=== PATIENT | female | born 1960 | race Caucasian/White ===

== ENCOUNTER 2018-11-12 10:29 | Day surgery (SDC) | payer BC, MEDICARE ==
[~2018-11-12 10:29] MED LIST: CEFAZOLIN 2 Gram 2 GM/50 ML BAG IVPB ONE; CELECOXIB 100 MG CAPSULE PO ONE; FAMOTIDINE 20MG TABLET PO ONE; MECLIZINE 25 MG TABLET PO ONE; METOCLOPRAMIDE 10 MG TABLET PO ONE; VANCOMYCIN 1GM/200ML PREMIX 1 GM/200 ML PIGGYBACK IVPB ONE
[2018-11-12] MEDS ORDERED: ONDANSETRON HCL IV 4 MG/2 ML VIAL IVP ONE (10:30)
[2018-11-12] MEDS ORDERED: MIDAZOLAM HCL 2MG/2ML VIAL IV ONE (10:30)
[2018-11-12] MEDS ORDERED: LIDOCAINE 2% MDV (20MG/ML) 20ML VIAL IV ONE (10:30)
[2018-11-12] MEDS ORDERED: PROPOFOL 10 MG/ML VIAL IV ONE (10:30)
[2018-11-12] MEDS ORDERED: MORPHINE SULFATE 5 MG/ML VIAL IJ ONE (10:30)
[2018-11-12] MEDS ORDERED: SEVOFLURANE 250 ML INH ONE (10:30)
[2018-11-12 11:10] LABS: URINE APPEARANCE CLEAR; URINE BILIRUBIN NEGATIVE (NEGATIVE); URINE BLOOD TRACE-I (NEGATIVE); URINE COLOR YELLOW; URINE GLUCOSE (UA) NEGATIVE (NEGATIVE); URINE KETONE NEGATIVE (NEGATIVE); URINE LEUKOCYTE ESTERASE NEGATIVE (NEGATIVE); URINE NITRITE NEGATIVE (NEGATIVE); URINE PROTEIN NEGATIVE (NEGATIVE); URINE UROBILINOGEN 0.2 E.U./dL (0.20 - 1.00)
[2018-11-12 11:36] LABS: URINE EPITHELIAL CELLS 0 - 2 (FEW); URINE RBC 0 - 2 (NONE SEEN); URINE WBC 0 - 2 (0-2/hpf)
[2018-11-12] MEDS ORDERED: RINGERS SOLUTION,LACTATED 1,000 ML IV ONE ×3 (11:52→12:59)
[2018-11-12] MEDS ORDERED: BUPIVACAINE 0.5% W/EPI MPF 30 ML VIAL SQ ONE (12:23)
[2018-11-12 12:29] LABS: ABO GROUP A; ANTIBODY SCREEN NEGATIVE (NEGATIVE); RH TYPE POSITIVE
[2018-11-12] MEDS ORDERED: ACETAMINOPHEN 325 MG TAB PO PRN (13:12)
[2018-11-12] MEDS ORDERED: BISACODYL 10 MG SUPP RC PRN (13:12)
[2018-11-12] MEDS ORDERED: AL HYDROX/MAG HYDROX 30ML UD PO PRN (13:12)
[2018-11-12] MEDS ORDERED: ACETAMINOPHEN W/ CODEINE 300MG/60MG TABLET PO PRN ×2 (13:12)
[2018-11-12] MEDS ORDERED: KETOROLAC 30 MG/ML VIAL IVP PRN (13:12)
[2018-11-12] MEDS ORDERED: OXYCODONE HCL 5 MG TABLET PO PRN (13:12)
[2018-11-12] MEDS ORDERED: MAGNESIUM HYDROXIDE 30 ML UDC PO PRN (13:12)
[2018-11-12] MEDS ORDERED: ONDANSETRON 4 MG ODT TABLET SL PRN (13:12)
[2018-11-12] MEDS ORDERED: NALOXONE 0.4 MG/1 ML VIAL IVP PRN (13:12)
[2018-11-12] MEDS ORDERED: DIPHENHYDRAMINE HCL 25 MG CAPSULE PO PRN (13:12)
[2018-11-12] MEDS ORDERED: TRAMADOL HCL 50 MG TABLET PO PRN (13:12)
[2018-11-12] MEDS: KETOROLAC 30 MG/ML VIAL IVP PRN ×2 (13:35→16:14)
[2018-11-12] MEDS ORDERED: FENTANYL PF 100MCG/2ML VIAL IVP PRN (13:38)
[2018-11-12] MEDS ORDERED: KETOROLAC 30 MG/ML VIAL IVP ONE (13:41)
[2018-11-12] MEDS: HYDROCODONE/APAP 10/325 TABLET PO PRN ×3 (15:23→20:46)
[2018-11-12] MEDS ORDERED: ROPIVACAINE HCL (NAROPIN) /PF 5MG/ML 20ML VIAL IV ONE (15:32)
[2018-11-12] MEDS ORDERED: DEXAMETHASONE 4 MG/ML 1ML VIAL IVP ONE (15:32)
[2018-11-12] MEDS ORDERED: TRANEXAMIC ACID 1,000 MG/10 ML ML IV ONE (15:35)
--- NOTE | 2018-11-12 17:29 | Rehab Evaluation ---
Patient Information - Patient Information Diagnosis: Pain in knee/patellar revision Ordered Treatment: PT Evaluate and Treat Status: Initial Evaluation Surgery: Yes (L knee patella revision) Date of Surgery: 11/12/18 Past Medical/Surgical Hx: PAST MEDICAL/SURGICAL HISTORY Past Surgical History BILAT KNEE REPLACEMENTS BILAT KNEE SCOPES BACK INJS PMH - Respiratory Hx Respiratory Disorders Yes Hx Bronchitis Yes: NOTHING RECENT Hx Sleep Apnea Yes Hx of CPAP No PMH - Cardiovascular Hx Cardiovascular Disorders Yes Hx Edema Yes: LE'S Hx Hypertension Yes: CONTROLLED WITH MEDS Hx Irregular Heartbeat Yes: HX TACHYCARDIA CONTROLLED WITH METOPROLOL Exercise Tolerance Poor PMH - Neuro Hx Neurological Disorders Yes Hx Headaches Yes: EVERYDAY SINUS AND TENSION PMH - GI Hx Gastrointestinal Disorders Yes Hx Gastroesophageal Reflux Yes: CONTROLLED WITH MEDS Hx Irritable Bowel Yes PMH - Hx Genitourinary Disorders Yes Hx Age of Menopause 42 Hx Bladder Problem Yes: OVERACTIVE, MEDS MINIMAL HELP PMH - Endocrine Hx Endocrine Disorders No PMH - Musculoskeletal Hx Musculoskeletal Disorders Yes Hx Arthritis Yes: "EVERYWHERE" Hx Fibromyalgia Yes PMH - Psych Hx Psychiatric Problems Yes Hx Anxiety Yes Hx Depression Yes Major Depressive Episode Yes PMH - Hematology/Oncology Hx Hematology/Oncology Yes Disorders Hx Blood Transfusion Reaction No Comment: CHRONIC FATIGUE SYNDROME Premorbid Status: Detail (The patient had some difficulty with mobilty prior to surgery.) Social History: Detail (Patient lives spouse in a two story house with 4 steps at the enterance and one handrail. The bathroom has a walk in shower, elevated toilet. No grab bars are presetn in the bathroom. The patient has a front wheeled walker, std. cane and shower bench.) Precautions: [place], Fall, Other (WBAT on the L LE.) - Time With Patient Total Time Spent With Patient (Min): 30 Treatment Procedures: Detail (Initial Evaluation low complexity , gait training.) Subjective Information - Subjective Information Per Patient (The patient had complaints of L knee pain which she rated as 5 at the highest.) Objective Data - Mental Status Patient Orientation: Oriented x3 - Visual Perception Appears within normal limits for therapeutic activities - ROM Not within normal limits (The patient had limitations in L knee AROM s/p surgery.) - Strength/Tone Not within normal limits (The patient's LE strength was not tested s/p however the patient presents with bilateral LE weakness. Patient's LE is functional.) - Bed Mobility Independent (Independent supine to and from sit transfer.) - Transfers Independent (Independent sit to and from stand transfer. Independent toilet transfer.) - Balance Balance Sitting: Good Balance Standing: Good - Sensation Intact - Gait Detail (The patient ambulated with front wheeled walker WBAT on the L LE with CG/supervision for safety a distance of 30 feet x 1 and 20 feet x 1 ( The distance was limited secondary to pain ). The patient ambulated on 3 stairs with use of 2 railings and CG of 2 for safety. Patient used a modified technique(leading with L LE when going up stairs) due to R LE weakness and hip limitations. PT gaurded L knee with ascending stairs. The patient's was present for stair climbing.) Therapy Assessment - Therapy Assessment Detail (Patient was independent with ambulation limited distances due to pain co mplaints and required CG to ambulate on stairs. Patient and her were aware of CG requirements. Patient was tearful prior to stair climbing stated she would be unable to climb stairs. Patient did ambulate on stairs after PT stated patient needed to demonstrate her safety on stairs prior to discharge. Patient has passed ambulation skills with gaurding restrictions on stairs. Patient has decided to stay the night due to pain management issues. PT will instruct patient in HEP and check on patient for another trial on stairs.) Problem List - Problem List Physical Therapy Problem List: Detail (1) Decreased bilateral LE strength 2) Impaired ambulation on levels and stairs s/p surgery and bilateral LE weakness and pain) Goals - Goals Physical Therapy Goals: The patient will be independent with HEP of LE strengthening exercises. The patient will ambulate household distances of 50 - 60 feet independently WBAT on the L LE. Prognosis - Prognosis Good Plan - Plan Physical Therapy Plan: PT 1-2 visits for gait training and instruction in HEP.
[2018-11-12] MEDS ORDERED: CEFTRIAXONE 1GM/50ML BAG 1 GM/50 ML BAG IVPB SCH (18:00)
[2018-11-12] MEDS ORDERED: CLONAZEPAM 1MG TABLET PO PRN (20:13)
[2018-11-12] MEDS ORDERED: RANITIDINE HCL 150 MG TABLET PO SCH (20:30)
[2018-11-12] MEDS ORDERED: PANTOPRAZOLE SODIUM 40 MG TABLET PO SCH (20:30)
[2018-11-12] MEDS: OXYBUTYNIN CHLORIDE 5MG TABLET PO SCH (21:31)
[2018-11-12] MEDS: DOCUSATE SODIUM 100 MG CAPSULE PO SCH (21:31)
[2018-11-12] MEDS ORDERED: METOPROLOL TART 50 MG TABLET PO SCH (22:00)
[2018-11-12] MEDS ORDERED: CLONAZEPAM 1MG TABLET PO SCH (22:00)
[2018-11-12] MEDS ORDERED: PAROXETINE HCL 10 MG TABLET PO SCH (22:00)
[2018-11-13] MEDS: HYDROCODONE/APAP 10/325 TABLET PO PRN ×3 (00:50→10:01)
--- NOTE | 2018-11-13 08:10 | Rehab Evaluation ---
Patient Information - Patient Information Diagnosis: Pain in knee/patellar revision Ordered Treatment: OT Evaluate and Treat Status: Initial Evaluation Surgery: Yes (L knee patella revision) Date of Surgery: 11/12/18 Past Medical/Surgical Hx: PAST MEDICAL/SURGICAL HISTORY Past Surgical History BILAT KNEE REPLACEMENTS BILAT KNEE SCOPES BACK INJS PMH - Respiratory Hx Respiratory Disorders Yes Hx Bronchitis Yes: NOTHING RECENT Hx Sleep Apnea Yes Hx of CPAP No PMH - Cardiovascular Hx Cardiovascular Disorders Yes Hx Edema Yes: LE'S Hx Hypertension Yes: CONTROLLED WITH MEDS Hx Irregular Heartbeat Yes: HX TACHYCARDIA CONTROLLED WITH METOPROLOL Exercise Tolerance Poor PMH - Neuro Hx Neurological Disorders Yes Hx Headaches Yes: EVERYDAY SINUS AND TENSION PMH - GI Hx Gastrointestinal Disorders Yes Hx Gastroesophageal Reflux Yes: CONTROLLED WITH MEDS Hx Irritable Bowel Yes PMH - Hx Genitourinary Disorders Yes Hx Age of Menopause 42 Hx Bladder Problem Yes: OVERACTIVE, MEDS MINIMAL HELP PMH - Endocrine Hx Endocrine Disorders No PMH - Musculoskeletal Hx Musculoskeletal Disorders Yes Hx Arthritis Yes: "EVERYWHERE" Hx Fibromyalgia Yes PMH - Psych Hx Psychiatric Problems Yes Hx Anxiety Yes Hx Depression Yes Major Depressive Episode Yes PMH - Hematology/Oncology Hx Hematology/Oncology Yes Disorders Hx Blood Transfusion Reaction No Comment: CHRONIC FATIGUE SYNDROME Premorbid Status: Detail (The patient had some difficulty with mobilty prior to surgery. Spouse is responsible for all home mgmt, meal prep and laundry tasks.) Social History: Detail (Patient lives spouse in a two story house with 4 steps at the entrance and one handrail. The bathroom has a walk in shower, elevated toilet. No grab bars are present in the bathroom. The patient has a front wheeled walker, std. cane and shower bench.) Precautions: [place], Fall, Other (WBAT on the L LE.) - Time With Patient Total Time Spent With Patient (Min): 35 Treatment Procedures: Detail (OT eval low complexity) Subjective Information - Subjective Information Per Patient, Other (spouse) Objective Data - Pain Pain Present: Yes (10/02) - Mental Status Patient Orientation: Oriented x3 - Visual Perception Appears within normal limits for therapeutic activities - ROM Within normal limits (Wilner UE AROM WNL) - Strength/Tone Within normal limits (Wilner UE strength WNL) - Coordination Appears within normal limits for therapeutic activities - Bed Mobility Independent (Ind with supine to sit) - Transfers Independent (Ind with sit to stand from EOB and commode heights) - Balance Balance Sitting: Good Balance Standing: Fair - Sensation Intact - Gait Detail (Pt ambulating in room with 2 wheeled walker and CG assist.) - ADL's/IADL's Detail (Pt educated and able to demonstrate learning of modified LE dressing techniques including doffing slipper socks and briefs and donning underwear, shorts, socks and shoes. Reviewed kitchen and shower safety and modifications, pt able to verbalize understanding.) Therapy Assessment - Therapy Assessment Detail (Pt is Ind with modified LE dressing techniques.) Problem List - Problem List Physical Therapy Problem List: Detail (1) Decreased bilateral LE strength 2) Impaired ambulation on levels and stairs s/p surgery and bilateral LE weakness and pain) Occupational Therapy Problem List: Detail (No current IP OT problems identified.) Goals - Goals Physical Therapy Goals: The patient will be independent with HEP of LE strengthening exercises. The patient will ambulate household distances of 50 - 60 feet independently WBAT on the L LE. Occupational Therapy Goals: No current IP OT goals identified. Prognosis - Prognosis Good Plan - Plan Physical Therapy Plan: PT 1-2 visits for gait training and instruction in HEP. Occupational Therapy Plan: No further IP OT recommended. Thank you for this referral.
[2018-11-13] MEDS: DOCUSATE SODIUM 100 MG CAPSULE PO SCH (09:56)
[2018-11-13] MEDS: OXYBUTYNIN CHLORIDE 5MG TABLET PO SCH (09:56)
[2018-11-13] MEDS ORDERED: PAROXETINE HCL 10 MG TABLET PO SCH (10:00)
--- NOTE | 2018-11-13 12:03 | Physical Therapy Tx Note ---
Physical Therapy Tx Note - Treatment Note Total Time Spent With Patient: 15 Physical Therapy Tx Note: Detail (Patient declined ambulation this am but states she is ambulating without difficulty. The patient's L knee pain is level 2. Technique of stair climbing was reviewed. The patient completed HEP independently including quad sets, hamstring sets, SLR, ankle pumps , gluteal sets and heelslides supine. The patient is discharged from inpatient PT and is to continue with HEP.) Physical Therapy Problem List: Detail (1) Decreased bilateral LE strength 2) Impaired ambulation on levels and stairs s/p surgery and bilateral LE weakness and pain) Physical Therapy Goals: The patient will be independent with HEP of LE strengthening exercises (Goal Met). The patient will ambulate household distances of 50 - 60 feet independently WBAT on the L LE. (Goal Met) Physical Therapy Plan: The patient has met all inpatient goals and is discharged from inpatient PT.
--- NOTE | 2018-11-13 14:51 | Operative Note ---
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 POSTOPERATIVE DIAGNOSIS: Failed left total knee patella. OPERATION: Revision left total knee patellar component and tibial liner. STAFF SURGEON: Ino Martinez MD ANESTHESIA: Spinal. PREPARATION: Chloraprep. INDIVIDUAL CONSIDERATIONS: None. PROCEDURE: The patient was taken to the operating room, placed supine on the operating room table. She had a successful induction with spinal anesthetic. Her left lower extremity was prepped and draped in the usual fashion. The patient had a midline approach to the knee. Limb was elevated and tourniquet was inflated to 250 mmHg. Sharp dissection carried down through skin and subcutaneous tissue. Previous scar was used. Small veins were coagulated with the Bovie. A medial arthrotomy was performed. Patella was everted, knee was flexed. There was obviously severe wear on the patella. It measured 23 mm before and now it measures maybe 18 to 16 mm because of the wear. The femoral component and tibial component were well placed. I went ahead and debrided some of the anterior soft tissue and fat pad and was able to dislodge the tibial component. It showed absolutely no signs of wear after irrigation. I replaced it with a size 5 Journey tibial liner this time with highly crosslinked poly. I then went ahead and isolated out the patella. I was able to just do a wafer cut on it compensating for bone loss. I probably removed about 3-4 mm of bone because I think at least 4 mm had been previously worn away. I was able to fit a 32 patella, and the 3 taxonomist holes were drilled. After thorough irrigation and drying the bone, I cemented a size 32 Journey patella. After the cement had set, there was normal patellofemoral tracking and no lateral release was required. After thorough irrigtion, I went ahead and infiltrated the periosteum and skin and subcu with 30 mL of 0.5% Marcaine with epinephrine. I then went ahead and closed the capsule with a running #2 quill. Subcu was closed with running 0 quill. Skin was closed with ct and a sterile bulky compressive TALIA dressing was applied. The patient tolerated procedure well. Needle and sponge counts were correct. Estimated blood loss was minimal. The patient was taken back to recovery in good condition. There were no complications. [facility]
== END 2018-11-13 11:45 | disposition home health service (06) ==
LOC: MEDSURG 10:29 → SUR 10:29 → INTOOBSV 10:29 → UNDOADMOB 10:29 → MEDSURG 10:29 → EDSTATUS 13:00 → MEDSURG 13:17 → SUR 11-13 11:45
PROVIDERS: ATTEND Orthopaedic Surgery
DX: T84.093A Other mechanical complication of internal left knee prosthesis, initial encounter (principal); I10 Essential (primary) hypertension; K21.9 Gastro-esophageal reflux disease without esophagitis; M79.7 Fibromyalgia; N32.81 Overactive bladder; G47.33 Obstructive sleep apnea (adult) (pediatric)
CPT/HCPCS: 27438; 01392; 64447; 81001; 86900; 86901; 86850; 94760; J1885; J2405; J3490 ×5; J3010; J0690; J2795; J0696; J3370; 76942; J7120

== ENCOUNTER 2018-12-24 06:51 | Day surgery (SDC) | payer MEDICARE ==
[2018-12-24] MEDS ORDERED: KETAMINE HCL 100MG/1ML VIAL INJ ONE (06:52)
[2018-12-24] MEDS ORDERED: PROPOFOL 10 MG/ML VIAL IV ONE (06:52)
[2018-12-24] MEDS ORDERED: ROPIVACAINE HCL (NAROPIN) /PF 5MG/ML 20ML VIAL IV ONE (06:52)
[2018-12-24] MEDS ORDERED: DEXAMETHASONE 4 MG/ML 1ML VIAL IVP ONE (06:52)
[2018-12-24] MEDS ORDERED: LIDOCAINE 2% MDV (20MG/ML) 20ML VIAL IV ONE (06:52)
[2018-12-24] MEDS ORDERED: ONDANSETRON HCL IV 4 MG/2 ML VIAL IVP ONE (06:52)
[2018-12-24] MEDS ORDERED: MAGNESIUM SULFATE 8 MEQ(1GM)/2ML VIAL IV ONE (06:52)
[2018-12-24] MEDS ORDERED: RINGERS SOLUTION,LACTATED 1,000 ML IV ONE ×2 (07:50→10:44)
[2018-12-24 08:00] LABS: ABO GROUP A; RH TYPE POSITIVE
[2018-12-24 08:01] LABS: ANTIBODY SCREEN NEGATIVE (NEGATIVE)
[2018-12-24] MEDS ORDERED: TRANEXAMIC ACID 1,000 MG/10 ML ML IU ONE (09:38)
[2018-12-24] MEDS ORDERED: TRANEXAMIC ACID 1,000 MG/10 ML ML IV ONE (09:38)
[2018-12-24] MEDS ORDERED: BUPIVACAINE 0.5% W/EPI MPF 30 ML VIAL SQ ONE (09:38)
[2018-12-24] MEDS ORDERED: HYDROMORPHONE HCL 2 MG/ML VIAL IM PRN (10:49)
[2018-12-24] MEDS ORDERED: ACETAMINOPHEN 325 MG TAB PO PRN (10:49)
[2018-12-24] MEDS ORDERED: KETOROLAC 30 MG/ML VIAL IVP PRN (10:49)
[2018-12-24] MEDS ORDERED: MAGNESIUM HYDROXIDE 30 ML UDC PO PRN (10:49)
[2018-12-24] MEDS ORDERED: ZOLPIDEM TARTRATE 5 MG TABLET PO PRN (10:49)
[2018-12-24] MEDS ORDERED: ACETAMINOPHEN W/ CODEINE 300MG/60MG TABLET PO PRN ×2 (10:49)
[2018-12-24] MEDS ORDERED: BISACODYL 10 MG SUPP RC PRN (10:49)
[2018-12-24] MEDS ORDERED: NALOXONE 0.4 MG/1 ML VIAL IVP PRN (10:49)
[2018-12-24] MEDS ORDERED: TRAMADOL HCL 50 MG TABLET PO PRN (10:49)
[2018-12-24] MEDS ORDERED: AL HYDROX/MAG HYDROX 30ML UD PO PRN (10:49)
[2018-12-24] MEDS ORDERED: DIPHENHYDRAMINE HCL 25 MG CAPSULE PO PRN (10:49)
[2018-12-24] MEDS ORDERED: ONDANSETRON HCL IV 4 MG/2 ML VIAL IVP PRN (10:49)
[2018-12-24] MEDS ORDERED: HYDROMORPHONE HCL 2 MG/ML VIAL IVP ONE (11:21)
[2018-12-24] MEDS: POTASSIUM CHLORIDE/D5-0.9%NACL 20 MEQ/1,000 ML BAG IV SCH ×2 (12:34→23:14)
[2018-12-24] MEDS ORDERED: CLONAZEPAM 1 MG PO PRN (12:42)
--- NOTE | 2018-12-24 15:22 | Rehab Evaluation ---
Patient Information - Patient Information Diagnosis: R TKA revision Ordered Treatment: PT Evaluate and Treat Status: Initial Evaluation Surgery: Yes (R knee revision patellar component) Date of Surgery: 12/24/18 Past Medical/Surgical Hx: PAST MEDICAL/SURGICAL HISTORY Surgery to Affected Area? Yes Recent Surgery? Past Surgical History LEFT KNEE REVISION 11-12-18 BILAT KNEE REPLACEMENTS BILAT KNEE SCOPES BACK INJS PMH - Respiratory Hx Respiratory Disorders Yes Hx Bronchitis Yes: NOTHING RECENT Hx Sleep Apnea Yes Hx of CPAP No PMH - Cardiovascular Hx Cardiovascular Disorders Yes Hx Edema Yes: LE'S Hx Hypertension Yes: CONTROLLED WITH MEDS Hx Irregular Heartbeat Yes: HX TACHYCARDIA CONTROLLED WITH METOPROLOL Exercise Tolerance Fair PMH - Neuro Hx Neurological Disorders Yes Hx Headaches Yes: EVERYDAY SINUS AND TENSION PMH - GI Hx Gastrointestinal Disorders Yes Hx Gastroesophageal Reflux Yes: CONTROLLED WITH MEDS Hx Irritable Bowel Yes PMH - Hx Genitourinary Disorders Yes Hx Age of Menopause 42 Hx Bladder Problem Yes: OVERACTIVE, MEDS MINIMAL HELP PMH - Endocrine Hx Endocrine Disorders No PMH - Musculoskeletal Hx Musculoskeletal Disorders Yes Hx Arthritis Yes: "EVERYWHERE" Hx Fibromyalgia Yes PMH - Psych Hx Psychiatric Problems Yes Hx Anxiety Yes Hx Depression Yes PMH - Hematology/Oncology Hx Hematology/Oncology Yes Disorders Hx Blood Transfusion Reaction No Comment: CHRONIC FATIGUE SYNDROME Premorbid Status: Detail (The patient was ambulatory household distances prior to surgery.) Social History: Detail (The patient lives with spouse in a two story house with 4 steps at the enterance and one handrail. The patient will not be using second floor after surgery. The patient has a walk in shower with a tub stool and an elevated toilet. No grab bars are present in bathroom. The patient has a front wheeled walker and standard cane.) Precautions: [place], Fall, Other (WBAT on the R LE.) - Time With Patient Total Time Spent With Patient (Min): 30 Treatment Procedures: Detail (Initial Evaluation low complexity.) Subjective Information - Subjective Information Per Patient (The patient had no complaints of R knee pain.) Objective Data - Mental Status Patient Orientation: Oriented x3 - Visual Perception Appears within normal limits for therapeutic activities - ROM Not within normal limits (The patient's R knee AROM was limited s/p surgery. All other LE AROM was WFL.) - Strength/Tone Not within normal limits (The patient's strength was not formally tested but is functional.) - Bed Mobility Independent (The patient was independent with supine to and from sit transfer.) - Transfers Independent (The patient was independent with sit to and from stand transfer.) - Balance Balance Sitting: Good Balance Standing: Good - Sensation Intact - Gait Detail (The patient ambulated with front wheeled walker WBAT on the R LE with supervision for safety only a distance of 100 feet x 1.) Therapy Assessment - Therapy Assessment Detail (The patient was independent with bed mobility, transfers and supervision only for safety with ambulation. The patient should sucessfully complete inpatient PT goals in one to two sessions.) Problem List - Problem List Physical Therapy Problem List: Detail (1) Decreased R knee AROM 2) Decreased R LE strength) Goals - Goals Physical Therapy Goals: 1) The patient will ambulate independently with assistive device household distances WBAT on the R LE. 2) The patient will ambulate on stairs using proper technique with supervision for safety. 3) The patient will be independent with TKA HEP Prognosis - Prognosis Good Plan - Plan Physical Therapy Plan: PT 1-2 sessions for gait training on levels and stairs and TKA HEP.
[2018-12-24] MEDS: HYDROCODONE/APAP 10/325 TABLET PO PRN ×2 (15:57→21:18)
[2018-12-24] MEDS ORDERED: PANTOPRAZOLE SODIUM 40 MG TABLET PO SCH (16:30)
[2018-12-24] MEDS ORDERED: RANITIDINE HCL 150 MG TABLET PO SCH (16:30)
[2018-12-24] MEDS: CEFAZOLIN 2 Gram 2 GM/50 ML BAG IVPB SCH (16:46)
[2018-12-24] MEDS: DOCUSATE SODIUM 100 MG CAPSULE PO SCH (21:11)
[2018-12-24] MEDS: OXYBUTYNIN 5 MG PO SCH (21:16)
[2018-12-24] MEDS ORDERED: METOPROLOL SUCCINATE 50MG PO SCH (22:00)
[2018-12-24] MEDS ORDERED: PAROXETINE 20 MG PO SCH (22:00)
[2018-12-24] MEDS ORDERED: MEDROXYPROGESTERONE 5 MG PO SCH (22:00)
[2018-12-24] MEDS ORDERED: CLONAZEPAM 1 MG PO SCH (22:00)
[2018-12-25] MEDS: CEFAZOLIN 2 Gram 2 GM/50 ML BAG IVPB SCH ×2 (01:03→10:12)
[2018-12-25] MEDS: POTASSIUM CHLORIDE/D5-0.9%NACL 20 MEQ/1,000 ML BAG IV SCH ×2 (04:50→13:47)
[2018-12-25] MEDS: HYDROCODONE/APAP 10/325 TABLET PO PRN ×3 (05:08→13:47)
[2018-12-25 06:44] LABS: HEMATOCRIT 33.9 % (35.0-47.0); HEMOGLOBIN 10.4 gm/dl (11.6-16.0)
[2018-12-25 07:04] LABS: BLOOD UREA NITROGEN 8 mg/dL (6-20); CREATININE 0.7 mg/dL (0.5-0.9); EST GLOMERULAR FILTRATION RATE > 60 mL/min; GLUCOSE,RANDOM 119 mg/dL (74-109)
--- NOTE | 2018-12-25 08:25 | Rehab Evaluation ---
Patient Information - Patient Information Diagnosis: R TKA revision Ordered Treatment: OT Evaluate and Treat Status: Initial Evaluation Surgery: Yes (R knee revision patellar component) Date of Surgery: 12/24/18 Past Medical/Surgical Hx: PAST MEDICAL/SURGICAL HISTORY Surgery to Affected Area? Yes Recent Surgery? Past Surgical History LEFT KNEE REVISION 11-12-18 BILAT KNEE REPLACEMENTS BILAT KNEE SCOPES BACK INJS PMH - Respiratory Hx Respiratory Disorders Yes Hx Bronchitis Yes: NOTHING RECENT Hx Sleep Apnea Yes Hx of CPAP No PMH - Cardiovascular Hx Cardiovascular Disorders Yes Hx Edema Yes: LE'S Hx Hypertension Yes: CONTROLLED WITH MEDS Hx Irregular Heartbeat Yes: HX TACHYCARDIA CONTROLLED WITH METOPROLOL Exercise Tolerance Fair PMH - Neuro Hx Neurological Disorders Yes Hx Headaches Yes: EVERYDAY SINUS AND TENSION PMH - GI Hx Gastrointestinal Disorders Yes Hx Gastroesophageal Reflux Yes: CONTROLLED WITH MEDS Hx Irritable Bowel Yes PMH - Hx Genitourinary Disorders Yes Hx Age of Menopause 42 Hx Bladder Problem Yes: OVERACTIVE, MEDS MINIMAL HELP PMH - Endocrine Hx Endocrine Disorders No PMH - Musculoskeletal Hx Musculoskeletal Disorders Yes Hx Arthritis Yes: "EVERYWHERE" Hx Fibromyalgia Yes PMH - Psych Hx Psychiatric Problems Yes Hx Anxiety Yes Hx Depression Yes PMH - Hematology/Oncology Hx Hematology/Oncology Yes Disorders Hx Blood Transfusion Reaction No Comment: CHRONIC FATIGUE SYNDROME Premorbid Status: Detail (The patient was ambulatory household distances prior to surgery. She and spouse share home mgmt, meal prep and laundry activities.) Social History: Detail (The patient lives with spouse in a two story house with 4 steps at the entrance and one handrail. The patient will not be using second floor after surgery. The patient has a walk in shower with a shower stool and an elevated toilet. No grab bars are present in bathroom. The patient has a front wheeled walker and standard cane.) Precautions: [place], Fall, Other (WBAT on the R LE.) - Time With Patient Total Time Spent With Patient (Min): 35 Treatment Procedures: Detail (OT eval low complexity) Subjective Information - Subjective Information Per Patient Objective Data - Pain Pain Present: No - Mental Status Patient Orientation: Oriented x3 - Visual Perception Appears within normal limits for therapeutic activities - ROM Within normal limits (Wilner UE AROM WNL) - Strength/Tone Within normal limits (Wilner UE strength WNL) - Coordination Appears within normal limits for therapeutic activities - Bed Mobility Independent (Ind with supine to sit) - Transfers Independent (Ind with sit to stand from elevated surfaces, pt requires assist from lower surfaces.) - Balance Balance Sitting: Good Balance Standing: Good - Sensation Intact - Gait Detail (Pt ambulating in room with 2 wheeled walker Indly.) - ADL's/IADL's Detail (Reviewed modified LE dressing techniques. Pt was able to demonstrate doffing briefs and slipper socks and donning jared sock (with assist), briefs, shorts, socks and slip on shoes. Reviewed kitchen and shower safety and modifications, pt verbalizes understanding.) Therapy Assessment - Therapy Assessment Detail (Pt is safe and Ind with modified LE dressing techniques.) Problem List - Problem List Physical Therapy Problem List: Detail (1) Decreased R knee AROM 2) Decreased R LE strength) Occupational Therapy Problem List: Detail (No current IP OT problems identified.) Goals - Goals Physical Therapy Goals: 1) The patient will ambulate independently with assistive device household distances WBAT on the R LE. 2) The patient will ambulate on stairs using proper technique with supervision for safety. 3) The patient will be independent with TKA HEP Occupational Therapy Goals: No current IP OT goals identified. Prognosis - Prognosis Good Plan - Plan Physical Therapy Plan: PT 1-2 sessions for gait training on levels and stairs and TKA HEP. Occupational Therapy Plan: No further IP OT recommended. Thank you for this referral.
[2018-12-25] MEDS ORDERED: PAROXETINE 20 MG PO SCH (10:00)
[2018-12-25] MEDS ORDERED: ESTRADIOL 1MG PO SCH (10:00)
[2018-12-25] MEDS ORDERED: FERROUS SULFATE 325 MG TAB PO SCH (10:00)
[2018-12-25] MEDS ORDERED: RIVAROXABAN 10 MG TABLET PO SCH (10:00)
[2018-12-25] MEDS: DOCUSATE SODIUM 100 MG CAPSULE PO SCH (10:09)
[2018-12-25] MEDS: OXYBUTYNIN 5 MG PO SCH (10:10)
--- NOTE | 2018-12-25 12:00 | Physical Therapy Tx Note ---
Physical Therapy Tx Note - Treatment Note Tolerated: Good Total Time Spent With Patient: 25 Physical Therapy Tx Note: Detail (Patient states right knee feeling a little better than earlier this morning. Patient transferred sit to and from stand CGA x1. Patient ambulated 13 feet with wheeled walker CGA x1. Patient transferred sit to and from stand mod assist x1, max assist x1. Patient ambulated 251 feet with wheeled walker CGA x1. Patient transferred sit to supine independently. Patient scooted up in bed independently. Patient performed the following exercises x10 reps each: ankle pumps, glut squeezes, quad sets, SLR, heel slides, and hamstring sets. Patient declined ambulation on stairs, but reports good understanding of stair climbing. Patient transferred supine to sit independently. Patient displayed difficultly with sit to stand transfer with toilet, but patient states toilet, bed, and chair at home are tall. Patient was left seated on edge of bed with call light within reach. Patient discharged from inpatient PT at this time, as almost all goals are met, and patient reports good understanding of stair climbing.) Physical Therapy Problem List: Detail (1) Decreased R knee AROM 2) Decreased R LE strength) Physical Therapy Goals: 1) The patient will ambulate independently with assistive device household distances WBAT on the R LE. Met. 2) The patient will ambulate on stairs using proper technique with supervision for safety. Goal partially met. Patient declined stair climbing, but was able to verbalize correct technique. 3) The patient will be independent with TKA HEP. Met. Prognosis: Good Physical Therapy Plan: PT 1-2 sessions for gait training on levels and stairs and TKA HEP.
--- NOTE | 2018-12-31 14:42 | Operative Note ---
DATE OF SURGERY: 12/24/2018 PREOPERATIVE DIAGNOSIS: Failed right total knee arthroplasty, patella. POSTOPERATIVE DIAGNOSIS: Failed right total knee arthroplasty, patella. OPERATION: Revision of right total knee arthroplasty, patella, and replacement of the tibial liner. STAFF SURGEON: Ino Martinez MD ANESTHESIA: General. PREPARATION: Chloraprep. INDIVIDUAL CONSIDERATIONS: None. PROCEDURE: The patient was taken to the operating room, placed supine on the operating room table. She had a successful induction with general anesthetic. The right lower extremity was prepped and draped in the usual fashion. The limb was elevated and tourniquet was inflated to 250 mmHg. The patient had a midline approach to the knee. Previous incision was used. Sharp dissection carried down through skin and subcutaneous tissue. Small veins were coagulated with a Bovie. A medial arthrotomy was performed. The patella was partially everted. There was quite a bit of bone loss on the patella with complete cartilage loss but there was about I would say 15 mm remaining. I was able to make a trueing cut, just flatten it off, and I removed maybe 3 mm of bone, which left sufficient patella remaining for an implant. I then released the capsule medially over the tibial liner and laterally and was able to pop the liner out. I went ahead after irrigation completely and popped a brand new highly cross- linked liner, which is size 5-6 for a Gen II. I then placed the guide for the drill guide for the patella finding that a 32 would be appropriate, and 3 relief pilot holes were drilled. Thoroughly irrigated out the knee to visual or palpable debris. Bony surfaces were then dried. A size 32 Gen II patella was cemented into place. I had normal patellofemoral tracking after the cement had set. After irrigation, tourniquet was let down and hemostasis was obtained with a Bovie. The capsule was then closed with a running #2 quill, subcu was closed in layers with running 0 quill, skin was closed with ct. The patient was taken back to recovery in good condition. There were no complications. Prior to closure, I did infiltrate the skin and subcu with 30 mL of 0.5% Marcaine with epinephrine. A dressing was applied which was a TALIA type. There were no complications. [facility]
== END 2018-12-25 16:45 | disposition home health service (06) ==
LOC: SUR 06:51 → MEDSURG 11:39 → SUR 12-25 16:45
PROVIDERS: ATTEND Orthopaedic Surgery
DX: T84.093A Other mechanical complication of internal left knee prosthesis, initial encounter (principal); I10 Essential (primary) hypertension; K21.9 Gastro-esophageal reflux disease without esophagitis; N32.81 Overactive bladder; G47.33 Obstructive sleep apnea (adult) (pediatric); M79.7 Fibromyalgia
CPT/HCPCS: 27438; 01392; 64447; 85018; 85014; 80048; 86900; 86901; 86850; J2405; J1170; J0690 ×2; J3490 ×3; J2795; J3370; 76942; J3480; J7120